=== PATIENT | female | born 1965 | race Caucasian/White ===

== ENCOUNTER → 2021-08-15 11:52 | Outpatient (CLI) | payer OTHER, SELFPAY ==
--- NOTE | 2021-08-15 11:54 | DI.US.S_ITS ---
PROCEDURE: US PELVIC COMPLETE INDICATIONS: Leiomyoma of uterus, unspecified TECHNIQUE: Real-time scanning was performed of the pelvic organs, with image documentation. Additional endovaginal scanning was necessary due to incomplete visualization of the adnexal and endometrial structures by transabdominal scanning. COMPARISON: None. FINDINGS: Uterus: Uterus is retroverted and normal in size at 4.5 x 2.7 x 4.5 cm. The myometrium is homogeneous. The endometrium measures 1 mm combined thickness. There is a 0.7 x 0.5 x 0.7 cm intramural fibroid in the posterior uterine wall. Question a 3.3 x 2.7 x 6.0 cm pedunculated fibroid. Ovaries: The right ovary measures 1.8 x 0.9 x 1.8 cm. The left ovary measures 2.1 x 1.0 x 1.9 cm. The ovaries have a normal sonographic appearance. Less than 12 follicles can be seen in each ovary. No adnexal masses are seen. There is a 4 mm simple cyst in the left ovary. A 8 x 6 x 8 mm complex cyst with a 3 mm centrally located isoechoic nodule is seen in the left ovary, probably a small hemorrhagic cyst.. Other: No pathologic free abdominal or pelvic fluid. IMPRESSION: 1. Question a 3.3 x 2.7 x 6.0 cm pedunculated fibroid. Comparison to prior examinations, if available, would be helpful. Since it is suboptimally visualized, gynecological MRI would be helpful for further characterization. 2. A small intramural fibroid in the posterior uterine wall. 3. An 8 x 6 x 8 mm complex cyst in the left ovary. A follow-up ultrasound is suggested in 6-12 weeks. We strive to produce accurate, complete, and clear reports of imaging services. To assist us in improving patient care, this report was composed using standard report templates and voice recognition software. Therefore, it may contain abnormal punctuation, insertions and/or omissions. Occasional wrong-word or sound-alike substitutions may occur. Though we review the report and make efforts to correct it, we do recommend that the report be read carefully in proper context to recognize any text inaccuracies. Dictated by: Saul Cook M.D. on 08/15/2021 at 17:45 Approved by: Saul Cook M.D. on 08/16/2021 at 8:21
== END ==
PROVIDERS: PCP Family Medicine; Referring Provider Family Medicine; Visit Provider Family Medicine
DX: D25.1 Intramural leiomyoma of uterus (principal); N83.292 Other ovarian cyst, left side
CPT/HCPCS: 76830; 76856

== ENCOUNTER → 2021-09-26 11:56 | Outpatient (CLI) | payer OTHER, SELFPAY ==
--- NOTE | 2021-09-26 11:57 | DI.US.S_ITS ---
PROCEDURE: US PELVIC COMPLETE INDICATIONS: Fibroids TECHNIQUE: Real-time scanning was performed of the pelvic organs, with image documentation. Additional endovaginal scanning was necessary due to incomplete visualization of the adnexal and endometrial structures by transabdominal scanning. COMPARISON: [facility], , US PELVIC COMPLETE, 08/15/2021, 12:07. FINDINGS: Uterus: Uterus is anteverted and appropriate in size. There is a 4.4 x 3.4 x 6.1 cm right anterior fibroid, previously 3.3 x 2.7 x 6.0 cm Ovaries: Right and left ovaries measure 2.5 x 1.1 x 1.0 cm and 1.6 x 1.1 x 2.7 cm respectively. There is a focal cyst in the right ovary with an echogenic focus measuring 0.7 x 0.6 x 0.8 cm, previously 0.8 x 0.6 x 0.8 cm. Other: No pathologic free abdominal or pelvic fluid. IMPRESSION: Stable ultrasound the pelvis includes 6 cm fibroid and subcentimeter left ovarian cyst with echogenic focus. Approved by: Noah Guadarrama M.D. on 09/26/2021 at 16:51
== END ==
PROVIDERS: PCP Family Medicine; Referring Provider Obstetrics & Gynecology; Visit Provider Obstetrics & Gynecology
DX: D21.9 Benign neoplasm of connective and other soft tissue, unspecified (principal); N83.201 Unspecified ovarian cyst, right side
CPT/HCPCS: 76830; 76856

== ENCOUNTER → 2021-10-02 11:42 | Outpatient (CLI) | payer OTHER, SELFPAY ==
[2021-10-02 12:56] LABS: Add Manual Diff / Slide Review NO; Basophils Absolute Auto 0 /uL (0-100); Basophils Percent Auto 0.6 % (0-2); Eosinophils Absolute Auto 200 /uL (0-450); Eosinophils Percent Auto 2.8 % (2-4); Hematocrit 42.4 % (36-46); Hemoglobin 14.5 g/dL (12.0-16.0); Lymphocytes Absolute Auto 2100 /uL (1100-4500); Lymphocytes Percent Auto 37.8 % (25-40); Mean Corpuscular HGB Conc 34.2 % (30-36); Mean Corpuscular Hemoglobin 30.1 PG (26-34); Monocytes Absolute Auto 600 /uL (0-900); Monocytes Percent Auto 11.2 % (3-14); Neutrophils Absolute Auto 2700 /uL (1500-7000); Neutrophils Percent Auto 47.6 % (50-75); Platelet Count 276 X10^3/uL (150-400); Red Blood Cell Count 4.82 X10^6/uL (4.0-5.2); Red Cell Distribution Width 12.5 % (11.6-14.8); White Blood Cell Count 5.6 X10^3/uL (4.5-11.0)
[2021-10-02 13:25] LABS: Alanine Aminotransferase 21 IU/L (<35); Albumin 4.4 g/dL (3.5-5.0); Albumin Globulin Ratio 1.5 (1.0-2.8); Alkaline Phosphatase 73 U/L (38-126); Aspartate Aminotransferase 26 IU/L (14-36); BUN Creatinine Ratio 19.4 (6-22); Bilirubin Total 0.3 mg/dL (0.2-1.3); Blood Urea Nitrogen 14 mg/dL (7-17); Calcium 9.2 mg/dL (8.4-10.2); Carbon Dioxide 26 mmol/L (22-32); Chloride 106 mmol/L (98-107); Estimated Glomerular Filt Rate > 60 mL/min (>60); Glucose 87 mg/dL (70-100); HEMOLYSIS < 15 (0-50); Sodium 140 mmol/L (137-145); Total Protein 7.4 g/dL (6.3-8.2)
[2021-10-02 13:53] LABS: Cancer Antigen 125 9.1 U/mL (0-35)
[2021-10-04 12:02] LABS: Human Epididymis Prot 4 74.9 pmol/L (0.0-105.2)
== END ==
PROVIDERS: PCP Family Medicine; Referring Provider Obstetrics & Gynecology; Visit Provider Obstetrics & Gynecology
DX: D21.9 Benign neoplasm of connective and other soft tissue, unspecified (principal)
CPT/HCPCS: 36415; 80053; 85025; 86304; 86305

== ENCOUNTER → 2022-05-11 15:19 | Outpatient (CLI) | payer OTHER, SELFPAY ==
--- NOTE | 2022-05-11 | DI.MG.S_ITS ---
BILATERAL DIGITAL SCREENING MAMMOGRAM 3D/2D WITH CAD: 05/11/2022 CLINICAL: Routine screening. Family history of breast cancer. Comparison is made to exams dated: 08/23/2020 mammogram, 02/20/2019 mammogram, 01/29/2018 mammogram, and 12/24/2016 mammogram - [facility]. Both breasts are extremely dense, which lowers the sensitivity of mammography (category d />75% glandular tissue). Current study was also evaluated with a Computer Aided Detection (CAD) system. No significant masses, calcifications, or other findings are seen in either breast. There has been no significant interval change. IMPRESSION: NEGATIVE There is no mammographic evidence of malignancy. A 1 year screening mammogram is recommended. This exam was interpreted at Station ID: [id number]. NOTE: For mammograms, a report in lay terms will be sent to the patient. Approximately 15% of breast malignancies will not be visualized mammographically. In the management of a palpable breast mass, a negative mammogram must not discourage biopsy of a clinically suspicious lesion. Electronically Signed By: Jose lopes/stephy:05/14/2022 07:36:26 letter sent: Normal Exam ACR BI-RADS Category 1: Negative [id number]
== END ==
PROVIDERS: PCP Family Medicine; Referring Provider Family Medicine; Visit Provider Family Medicine
DX: Z12.31 Encounter for screening mammogram for malignant neoplasm of breast (principal); Z80.3 Family history of malignant neoplasm of breast
CPT/HCPCS: 77063; 77067

== ENCOUNTER → 2022-07-17 11:41 | Outpatient (ROUT) | payer OTHER, SELFPAY ==
[2022-07-17 12:44] LABS: Influenza A - CEPHEID Flu A NEGATIVE (NEGATIVE); Influenza B - CEPHEID Flu B NEGATIVE (NEGATIVE); Respiratory Syncytial Virus Negative (Negative)
[2022-07-17 12:54] LABS: COVID-19 CEPHEID 4-PLEX PCR Negative (Negative)
== END ==
PROVIDERS: PCP Family Medicine; Visit Provider Registered Nurse
DX: Z11.52 Encounter for screening for COVID-19 (principal)
CPT/HCPCS: 0241U

== ENCOUNTER → 2022-07-17 11:42 | Outpatient (CLI) | payer OTHER, SELFPAY ==
--- NOTE | 2022-07-17 11:47 | DI.RAD.S_ITS ---
PROCEDURE: XR CHEST 2V INDICATIONS: ACUTE COUGH TECHNIQUE: 2 views of the chest were acquired. COMPARISON: None. FINDINGS: Surgical changes and devices: None. Lungs and pleura: Lungs are clear. No pleural effusions or pneumothorax. Mediastinum: Mediastinal contours are normal. Heart size is normal. Bones and chest wall: No suspicious bony abnormalities. Soft tissues appear unremarkable. IMPRESSION: No acute cardiopulmonary disease process. Dictated by: Paola Berman MD, PhD on 07/17/2022 at 13:23 Approved by: Paola Berman MD, PhD on 07/17/2022 at 13:24
== END ==
PROVIDERS: PCP Family Medicine; Referring Provider Registered Nurse; Visit Provider Registered Nurse
DX: R05.1 Acute cough (principal); Z11.52 Encounter for screening for COVID-19
CPT/HCPCS: 0241U; 71046

== ENCOUNTER 2022-09-27 07:40 | Day surgery (SDC) | payer OTHER, SELFPAY ==
[2022-09-19 10:56] VITALS: BMI 26.3
[2022-09-27] VITALS (9 sets, daily range): BP systolic 104–125; BP diastolic 60–73; PULSE 60–77; RESP 9–18; TEMP 35.7–36.3; O2SAT 92–98; BMI 26.3
--- NOTE | 2022-09-27 | PATH_ITS ---
[facility] Accession Number: [id number] No. of containers..01 Tissue . 01 Material submitted: . uterus - UTERUS, BILATERAL FALLOPIAN TUBES, AND BILATERAL OVARIES . 01 Diagnosis: Uterus, Cervix, Left and Right Fallopian Tubes and Ovaries, Hysterectomy and Bilateral Salpingo-oophorectomy: Cervix: Atrophy of ectocervix. Endometrium: Inactive. Myometrium: Two leiomyomata, serosal and mural. Left and right fallopian tubes: Benign paratubal cysts. Left and right ovaries: Small bilateral serous cystadenofibromas and a single pedunculated fibroma (the latter from the left side). [facility] 10/02/2022 1734 Local . 01 Comment: Lace Cutter sections of this case are also reviewed by Dr. Carolina Caldwell, who concurs with the given interpretation. . 01 Electronically signed: . Tricia Eubanks MD, Pathologist NPI- [id number] . 01 Gross description: . The specimen is received in formalin labeled with the patient's name, , and uterus, bilat fallopian tubes, and ovaries, and consists of an intact uterus (88 g, 6.8 cm superior to inferior, 4.8 cm medial to lateral, 3.3 cm anterior to posterior), attached cervix (2.5 x 2.5 cm), left fallopian tube (5.1 x 0.7 cm), left ovary (3 g, 2.5 x 1.3 x 0.7 cm), right fallopian tube (5.1 x 0.7 cm), and right ovary (3 g, 2.3 x 1.5 x 0.9 cm). The serosa is smooth and diffusely congested with a large pedunculated duke, firm nodule located on the anterior surface measuring 5.6 x 3.9 x 3.5 cm. The ectocervix is duke and smooth with a suture extending from the approximate 12-9 o'clock position with no designation per the requisition. The entire paracervical margin is inked blue while the posterior paracervical margin is inked black. The endocervical canal has duke herringbone mucosa and measures 2.5 cm in length. The endometrial cavity measures 1.7 cm from cornu to cornu and 3.6 cm in length with red, velvety endometrium that averages less than 0.1 cm thick. The myometrium is duke and trabecular measuring up to 1.1 cm in greatest dimension with an additional well-circumscribed white, whorled nodule located intramurally, measuring 0.6 cm in diameter. Sectioning the previously mentioned pedunculated nodule reveals a white, whorled, well-circumscribed cut surface with no hemorrhage or necrosis identified. The left fallopian tube has violaceous smooth serosa with multiple cystic structures measuring up to 0.8 cm in greatest dimension, filled with cloudy serous fluid. sectioning reveals an unremarkable stellate lumen. The left ovary has a duke, cerebriform external surface with a pedunculated duke, firm nodule measuring 0.5 x 0.5 x 0.4 cm and is inked blue. Sectioning reveals a physiologic cut surface with a unilocular, thin-walled cystic structure with an area of pale duke excrescence measuring 0.2 cm in greatest dimension. The inked nodule has a white, whorled cut surface. The right fallopian tube has violaceous smooth serosa with multiple cystic structures measuring up to 0.5 cm in greatest dimension, filled with cloudy serous fluid. Sectioning reveals an unremarkable stellate lumen. The right ovary has a duke, cerebriform external surface. Sectioning reveals a thin, smooth-walled cystic structure filled with duke gelatinous material measuring 0.3 cm in greatest dimension. Lace Cutter sections are submitted as follows: A1: Anterior cervix. A2: Posterior cervix. A3: Anterior full-thickness section. A4: Posterior full-thickness section with nodule. A5: Congested serosa. A6: Pedunculated nodule. A7: Left fallopian tube to include one-half of bisected fimbriae and cross sections. A8-A9: Left ovary to include entire cystic structure and pedunculated nodule. A10: Right fallopian tube to include one-half of bisected fimbriae and cross sections. A11: Lace Cutter right ovary. ([id number]) /[facility] 09/29/[address] [place] [address] . 01 Pathologist provided ICD-10: D25.9 . 01 CPT . 251325 Specimen Comment: A courtesy copy of this report has been sent to [phone] Performed at: 01 [facility] [address] [place] [address], [place], [place] [id number] MD Bertin Mars MD Phone: [phone]
[2022-09-27] MEDS: LACTATED RINGERS 1,000 ML 84 ML IV ×2 (08:03→10:02)
--- NOTE | 2022-09-27 09:03 | PM.PREOP ---
Pre-operative Note COVID-19 COVID-19 status: Not tested Criteria for continued procedure: Non-surgical alternatives not available or appropriate per current SOC Interval Note History & Physical reviewed/Exam performed by Physician: Yes Changes to H&P: No
[2022-09-27] MEDS: CEFAZOLIN 2 GM/100 ML PREMIX 100 ML IV (09:33)
--- NOTE | 2022-09-27 09:50 | SUR.OPER ---
Lithotomy on padded OR bed. [place] Pad Positioner under torso. Head on pillow, arms padded and tucked at sides. Legs secured in padded yellow fins stirrups.
[2022-09-27] MEDS: BUPIVACAINE 0.5% W/ EPI (PF) 30 ML VIAL INJ (10:06)
[2022-09-27] MEDS: ROPIVACAINE 0.2% PF 2 MG/ML 20ML AMP 20 ML INJ (10:36)
--- NOTE | 2022-09-27 11:41 | P.OP_ITS ---
Operative Date/Time/Diagnoses Date of procedure: 09/27/22 Time of procedure: 09:30 Pre-op diagnosis: Pelvic pain Uterine fibroids Right ovarian cyst Stress urinary incontinence Post-op diagnosis: same Procedure & Clinicians Procedure: Procedures Operation Date: 09/27/22 09:00 Actual Procedure Side Surgeon p Total Laparoscopic Hysterectomy w. bilateral salpingectomy-oophorectomy Shabbir Almendarez MD s mid urethral sling, cystoscopy Shabbir Almendarez MD Indications: Marion presented nearly a year ago to discuss hysterectomy for complaints of pelvic pain and pressure associated with her enlarged fibroid uterus.? Patient has been well evaluated and counseled previously by Dr. Janett Freeman and desires to proceed with scheduling total laparoscopic hysterectomy with bilateral salpingo oophorectomy.? Her most recent pelvic US, performed in September 2021 shows: PROCEDURE:? US PELVIC COMPLETE ? INDICATIONS:? Fibroids ? TECHNIQUE:? Real-time scanning was performed of the pelvic organs, with image documentation.? Additional endovaginal scanning was necessary due to incomplete visualization of the adnexal and endometrial structures by transabdominal scanning.? ? COMPARISON:? [facility], US PELVIC COMPLETE, 08/15/2021, 12:07. ? FINDINGS:? ?? Uterus:? Uterus is anteverted and appropriate in size.? There is a 4.4 x 3.4 x 6.1 cm right anterior fibroid, previously 3.3 x 2.7 x 6.0 cm ? Ovaries:? Right and left ovaries measure 2.5 x 1.1 x 1.0 cm and 1.6 x 1.1 x 2.7 cm respectively.? There is a focal cyst in the right ovary with an echogenic focus measuring 0.7 x 0.6 x 0.8 cm, previously 0.8 x 0.6 x 0.8 cm. ? Other:? No pathologic free abdominal or pelvic fluid. ?? IMPRESSION:? ? Stable ultrasound the pelvis includes 6 cm fibroid and subcentimeter left ovarian cyst with echogenic focus. In addition to the aforementioned symptoms, the patient also has mixed UI which is primarily stress in nature.? She does however occasionally have some urge incontinence as well.? Patient's paps have always been normal with her most recent in September 2021.? Her LMP was 6-7 years ago and she's experienced no PMB whatsoever. Options again discussed for treatment of the patient's pelvic pain related to fibroids she very much wishes to proceed to hysterectomy with bilateral salpingo oophorectomy.? In addition will perform mid-urethral sling placement due to her history of anatomic KRYSTIAN.? She presents today for her scheduled surgery. Surgeon: Shabbir Almendarez Band Bias Machine Operator: Michelle Quintero Anesthesia Type: General Operative Notes Closure Type: primary Specimen(s): left tube & ovary, right tube & ovary and uterus Applied: catheter Estimated blood loss (mL): 75 Blood products transfused: none Procedure in detail: With the patient in modified dorsal lithotomy position preparations were made by prepping and draping the patient in usual manner for vaginal surgery and insertion of Mccormick catheter. A pre-surgical time-out was then taken in accordance with [facility] [place] policy. A bivalve speculum was then placed in the vagina and the cervix visualized. The anterior lip of the cervix was then grasped with a single-tooth tenaculum. The uterus was sounded to 7 cm, the endocervical canal dilated slightly, and a LK FREEMANare uterine manipulator with a small colpotomy cup was placed. The umbilicus was then infiltrated with 0.5% Marcaine with epinephrine. A 1 cm umbilical incision was made transversely and a Veress needle was used to insufflate the abdominal cavity with carbon dioxide. Once the abdomen was appropriately insufflated, a 5 mm trocar and sleeve were then placed through the umbilical incision. The scope was placed through the trocar and the initial assessment of the intra-abdominal contents carried out. A 2nd and 3rd 5 mm port was then placed 1st in the right mid quadrant from then the left mid quadrant by infiltration of the skin and subcutaneous tissues, a 1 cm transverse incision and insertion of the 5 mm bladeless port. Using a 3 puncture technique, the abdomen and pelvis were inspected laparoscopy. Uterus is mobilized with the VCare manipulator and attention turned to the left adnexa. The distal left fallopian tube was grasped and elevated so as to expose the infundibulopelvic ligament on the left side. The infundibulopelvic ligament was then doubly coagulated with the LigaSure bipolar device and the dissection carried medially across the mesosalpinx and down the lateral aspect of the uterus on the left side. The dissection was carried down to the level of the endocervical canal at which point the bladder flap was initiated from the left side and taken down across the midline. The ascending uterine vessels vessels on the left side were then skeletonized, coagulated, and divided. Attention was then turned to the right adnexa with the distal tube elevated with a grasping forceps. The infundibulopelvic ligament was then doubly coagulated with the LigaSure device and the dissection carried across the mesosalpinx to the right cornua with the dissection then turning downward across the round ligament and down to the level of the endocervical canal on the right. The bladder flap was completed, the ascending uterine vessels skeletonized, coagulated, and divided with the LigaSure. The uterus was seen to margaret after coagulation of both your arteries and the cup was identified through the vaginal muscularis at its insertion with the body of the cervix. Circumferential excision of the vaginal cup was accomplished without difficulty using monopolar current and the uterus mobilized. The uterus was then removed through the vagina and the vaginal cuff closed [id number] with a series of 0 Vicryl [id number] stitches. Hemostasis was excellent, the abdomen was re-insufflated, and the pelvis inspected laparoscopically. The pelvis was inspected for any abnormality or bleeding, and the ureters were each seen to be peristalsing freely. 20 cc of ropivacaine was instilled into the posterior cul-de-sac and vaginal cuff. With complete hemostasis assured, the pneumoperitoneum was vented and the ports removed. All of the 5 mm ports were then closed with 4-0 Monocryl on the skin using inverted interrupted sutures. Skin glue was placed and after the glue was dried, an appropriate dressing was applied. Attention was then turned to performance of the mid urethral sling. A weighted speculum was inserted in the vagina and the anterior vaginal wall inspected. A Mccormick catheter was inserted previously in the bladder and the mid urethra was identified by palpation of the Mccormick bulb. Once the mid urethra had been identified, 2 Allis clamps were placed and the area of incision infiltrated with 0.25% Marcaine with epinephrine. A 2 cm longitudinal incision of the vaginal mucosa overlying the mid urethra was then made and using Metzenbaum scissors the dissection was carried lateral on both sides so as to be able to safely introduce the retropubic tension-free vaginal tape. The TVT needle was placed 1st on the right side followed by placement of a left up through the suprapubic skin. The needle tips were brought out through the skin and remained in place while the Mccormick catheter was removed and cystoscopy performed with findings as noted above. The TVT needles were then brought up through the suprapubic incisions and removed with suture scissors. The mid urethral sling was then appropriately positioned under the mid urethra and the plastic sleeves removed from the TVT once it was in correct position. The redundant portion TVT material was then excised at the skin line of the suprapubic incisions. Correct positioning of the DVT was then confirmed and the vaginal incision closed with 3-0 chromic in a running locking stitch. Pressure was maintained on the retropubic tissues for 5 minutes so as to reduce the risk subsequent bleeding or bruising. The suprapubic incisions were then closed with skin glue and an appropriate dressing was applied. Patient was then awakened from anesthesia and transferred to the PACU for a period of observation and recovery after having tolerated procedure well. Complications: none Post-operative Condition: stable Disposition: PACU Plan for aftercare: Routine postoperative care with possible discharge later today.
--- NOTE | 2022-09-27 12:56 | PC.NURSE ---
Patient is sleepy but wakes up easily, she denies pain. 3 lap sites are cdi with dressings of allevyn. Mccormick patent and putting out yellow urine. No packing in vagina, Resting now.
[2022-09-27] MEDS: KETOROLAC 30 MG/ML VIAL IV ×3 (13:14→23:59)
[2022-09-27] MEDS: LACTATED RINGERS 1,000 ML 100 ML IV ×2 (13:14→20:01)
[2022-09-27] MEDS: ONDANSETRON 4 MG/2 ML INJ IV (18:02)
[2022-09-27] MEDS: ACETAMINOPHEN 325 MG TABLET 650 MG PO ×2 (18:02→23:58)
[2022-09-27] MEDS: DOCUSATE 100 MG CAPSULE 200 MG PO (21:32)
[2022-09-27] MEDS: OXYCODONE IR 5 MG TABLET PO (22:39)
[2022-09-28 00:19] VITALS: BP 103/54; PULSE 73; RESP 17; TEMP 36.4; O2SAT 95
[2022-09-28] MEDS: ACETAMINOPHEN 325 MG TABLET 650 MG PO ×2 (05:35→14:15)
[2022-09-28] MEDS: KETOROLAC 30 MG/ML VIAL IV (05:35)
[2022-09-28 06:31] LABS: Add Manual Diff / Slide Review NO; Basophils Absolute Auto 0 /uL (0-100); Basophils Percent Auto 0.2 % (0-2); Eosinophils Absolute Auto 0 /uL (0-450); Eosinophils Percent Auto 0.1 % (2-4); Hematocrit 38.3 % (36-46); Hemoglobin 13.2 g/dL (12.0-16.0); Lymphocytes Absolute Auto 1900 /uL (1100-4500); Lymphocytes Percent Auto 20.8 % (25-40); Mean Corpuscular HGB Conc 34.6 % (30-36); Mean Corpuscular Hemoglobin 30.5 PG (26-34); Mean Corpuscular Volume 88.1 fL (80-100); Monocytes Absolute Auto 700 /uL (0-900); Monocytes Percent Auto 8.1 % (3-14); Neutrophils Absolute Auto 6300 /uL (1500-7000); Neutrophils Percent Auto 70.8 % (50-75); Platelet Count 207 X10^3/uL (150-400); Red Blood Cell Count 4.34 X10^6/uL (4.0-5.2); Red Cell Distribution Width 14.9 % (11.6-14.8)
[2022-09-28 08:14] VITALS: BP 104/61; PULSE 55; RESP 16; TEMP 36.9; O2SAT 96
[2022-09-28] MEDS: DOCUSATE 100 MG CAPSULE 200 MG PO (08:33)
[2022-09-28] MEDS: FLUoxetine 20 MG CAPSULE PO (08:33)
[2022-09-28] MEDS: ONDANSETRON 4 MG/2 ML INJ IV ×2 (08:34→14:17)
[2022-09-28] MEDS: OXYCODONE IR 5 MG TABLET PO (09:33)
--- NOTE | 2022-09-28 10:26 | PM.DS.1 ---
History of Present Illness History of Present Illness Date Patient Seen: 09/28/22 Time Patient Seen: 10:26 Chief complaint: Pelvic pain, uterine fibroids, KRYSTIAN Narrative: Marion presented nearly a year ago to discuss hysterectomy for complaints of pelvic pain and pressure associated with her enlarged fibroid uterus.? Patient has been well evaluated and counseled previously by Dr. Janett Freeman and desires to proceed with scheduling total laparoscopic hysterectomy with bilateral salpingo oophorectomy.? Her most recent pelvic US, performed in September 2021 shows: PROCEDURE:? US PELVIC COMPLETE ? INDICATIONS:? Fibroids ? TECHNIQUE:? Real-time scanning was performed of the pelvic organs, with image documentation.? Additional endovaginal scanning was necessary due to incomplete visualization of the adnexal and endometrial structures by transabdominal scanning.? ? COMPARISON:? [facility], PELVIC COMPLETE, 08/15/2021, 12:07. ? FINDINGS:? ?? Uterus:? Uterus is anteverted and appropriate in size.? There is a 4.4 x 3.4 x 6.1 cm right anterior fibroid, previously 3.3 x 2.7 x 6.0 cm ? Ovaries:? Right and left ovaries measure 2.5 x 1.1 x 1.0 cm and 1.6 x 1.1 x 2.7 cm respectively.? There is a focal cyst in the right ovary with an echogenic focus measuring 0.7 x 0.6 x 0.8 cm, previously 0.8 x 0.6 x 0.8 cm. ? Other:? No pathologic free abdominal or pelvic fluid. ?? IMPRESSION:? ? Stable ultrasound the pelvis includes 6 cm fibroid and subcentimeter left ovarian cyst with echogenic focus. In addition to the aforementioned symptoms, the patient also has mixed UI which is primarily stress in nature.? She does however occasionally have some urge incontinence as well.? Patient's paps have always been normal with her most recent in September 2021.? Her LMP was 6-7 years ago and she's experienced no PMB whatsoever. Options again discussed for treatment of the patient's pelvic pain related to fibroids she very much wishes to proceed to hysterectomy with bilateral salpingo oophorectomy.? In addition will perform mid-urethral sling placement due to her history of anatomic KRYSTIAN.? She presents today for her scheduled surgery. Discharge Providers Provider Date of admission: 09/27/2022 Discharge Date: 09/28/22 Primary care physician: Trey Correa MD Discharge provider: Shabbir Almendarez MD Summary Hospital Course Discharge Diagnosis: Pelvic pain Uterine fibroids Stress urinary incontinence Postop urinary retention Status post total laparoscopic hysterectomy with bilateral salpingo oophorectomy and mid urethral sling placement Hospital Course: Marion was admitted on the morning of 09/29/2022 and underwent an uneventful total laparoscopic hysterectomy with bilateral salpingo oophorectomy and placement of mid urethral sling with cystoscopy. Details of the procedure well summarized on my operative note of that date. Following surgery the patient has done extremely well with prompt return of bowel function, she is ambulating independently, tolerating regular diet, and her pain is well-controlled with oral pain medications. Unfortunately she is having difficulty fully emptying her bladder as she was able to void about 250 cc but upon catheterization was found to have an 1100 cc residual. After discussion of all options, she will be discharged with instructions and supplies for intermittent self catheterization and initiation of Flomax 0.4 mg p.o. q.d.. Prior to discharge she was counseled regarding precautionary symptoms, limitations of activity, medications, and plans for follow-up which will be in 2 weeks or as needed. Medications at discharge will include resumption of all of her preoperative medications and oxycodone 5 mg p.o. q.6 hours as needed pain dispensed 15 with no refills, and Cipro 500 mg p.o. b.i.d. x5 days for UTI prophylaxis. She will continue Flomax daily for the next 10 days and be in contact with the office if she has any continued difficulty with voiding. Status at Discharge Cognitive/behavioral status at discharge: oriented Functional status at discharge: independent ambulation Overall status at discharge: patient is progressing back to baseline Time Spent with Patient Time spent: Less than 30 minutes Exam Vital Signs (past 8 hours): - 09/28/22 08:14 Temperature 98.5 F Pulse Rate 55 L Respiratory Rate 16 Blood Pressure 104/61 Pulse Oximetry 96 Oxygen Delivery Method Room Air Oxygen Flow Rate 0 Const General: cooperative and comfortable Nutritional Appearance: average body habitus Orientation: alert and oriented x3 HENMT Head: normal to inspection, atraumatic and abrasion Ears: hearing grossly normal bilaterally Face and sinus: face symmetric Eyes General: appearance normal, both eyes and all related structures Conjunctivae: conjunctivae normal Sclera: sclerae normal EOM: EOM intact bilaterally Neck Neck: normal visual inspection Resp Effort & Inspection: normal respiratory effort and able to speak in complete sentences Auscultation: clear to auscultation bilaterally Cardio Rate: regular rate Rhythm: regular rhythm Heart Sounds: S1 normal, S2 normal and no murmurs GI Inspection: normal to inspection and incision (Surgical dressings clean and dry) Palpation: soft, no hepatosplenomegaly and tender (Mild, diffuse postsurgical tenderness) Auscultation: normal bowel sounds External Female Exam: other (No significant bleeding noted) Extrem General: no calf tenderness Psych Appearance: grossly normal Mental Status: mental status grossly normal Speech and Movement: speech and movement normal Mood: congruent mood Affect: normal affect Attitude: cooperative Thought Process: normal Thought Content: normal Judgment: judgment good Objective Labs 09/28/22 05:40 Labs: Laboratory Results - last 24 hr 09/28/22 05:40 WBC 9.0 RBC 4.34 Hgb 13.2 Hct 38.3 MCV 88.1 MCH 30.5 MCHC 34.6 RDW 14.9 H Plt Count 207 Neut % (Auto) 70.8 Lymph % (Auto) 20.8 L Bowman % (Auto) 8.1 Eos % (Auto) 0.1 L Baso % (Auto) 0.2 Neut # (Auto) 6300 Lymph # (Auto) 1900 Bowman # (Auto) 700 Eos # (Auto) 0 Baso # (Auto) 0 PFSH Medical History (Updated 09/18/22 @ 09:56 by Shabbir Almendarez MD) Anxiety (~2004) Carpal tunnel syndrome (~1993) Chicken pox (~1971) Depression Fibroids Gastric reflux (~1999) Hemorrhoid (~2016) History of alcoholism History of urinary incontinence (~2016) Shoulder pain (~1990) Surgical History (Updated 10/12/21 @ 20:40 by Margaret Goss) Anesthesia History of colonoscopy Family History (Updated 10/12/21 @ 20:49 by Margaret Goss) Family/Other Breast cancer Father Prediabetes History of heart disease Hyperlipidemia Hypertension Mental health problem Mother Diabetes mellitus Hyperlipidemia Hypertension Ovarian cyst Grandfather History of heart disease Hypertension Hyperlipidemia Stroke Grandmother Leukemia Hypertension Shingles Grandfather Mental health problem Alzheimer's disease Grandmother History of heart disease Hypertension Mental health problem Breast cyst Social History household members: spouse Smoking Status: Never smoker alcohol intake: never Discharge Plan Discharge Plan Patient Disposition: Home Provider Discharge Comment: Please review the written instructions she received you were discharged from the hospital. Your follow-up appointment with me will be 2 weeks after your surgery and I look forward to seeing you then. In the meanwhile however if you have any issues, concerns, or problems, please contact me either through the office phone at [phone], or via the patient portal. Nursing Discharge Comment: Urinate first, then place in and out catheter as shown. Keep track of the amount of urine coming out of the bladder. The amount should lessen over time. If it doesn't decrease then call Dr. Almendarez on Saturday, or if needed the [facility] service over the weekend. Discharge orders & Medications Discharge Orders: Discharge (Order); Ordered 09/28/22 Ordered By: Shabbir Almendarez Prescriptions: New oxycodone 5 mg Tablet 5 mg PO Q6H PRN (Reason: Pain, Moderate (4-6)) Qty: 15 0RF ciprofloxacin HCl [Cipro] 500 mg tablet 500 mg PO BID 5 Days Qty: 10 0RF tamsulosin [Flomax] 0.4 mg capsule 0.4 mg PO BEDTIME Qty: 10 0RF Continued fluoxetine 20 mg capsule 20 mg PO DAILY Follow up/Referrals: Trey Correa MD [Primary Care Provider] - Shabbir Almendarez MD [Physician] - Diet/Activity/Treatments Diet: Diet as Tolerated Activity: As tolerated Other treatments: Cyun-fke-nhabefg Tylenol and/or ibuprofen may be used for additional pain relief. Use the straight catheters provided to drain your bladder as needed. Skin/Wound/Dressing Care Report to your healthcare provider any signs of infection, such as:: chills, fever, increased pain, unusual drainage and unusual redness Dressing: Dressings should be removed on morning of 09/29/2022 Visit Report/Discharge Packet Instructions: How to Catheterize Yourself -- for Women, DI for Hysterectomy, DI for Laparoscopy, DI for Constipation, How to Prevent Falls, DI for Prescription Opioid Use, Tamsulosin Stand Alone Forms: Patient Portal/API, Stroke Signs & Symptoms Print Language: Mohawk Discharge Data Primary Care Provider: Trey Correa Attending Provider: Shabbir Almendarez VTE Deep Vein Thrombosis/Pulmonary Embolism Present on Admission: No
--- NOTE | 2022-09-28 11:29 | CM.DANOTE ---
DCP: Case received, EMR reviewed and met with patient. Introduced self and role. Completed DCP assessment based upon information currently available. Patient is a 57 year old female who admitted yesterday morning to the care of Dr. Almendarez. Payer: confirmed: [facility]. PCP: Dr. Correa. Patient came to the hospital via private vehicle for a surgical procedure. Patient had total laparoscopic hysterectomy with bilateral salpingectomy-oophorectomy. Patient has history of uterine fibroids, ovarian cyst. Met with patient in her room. She is alert, sitting up in bed. She resides in [place] with spouse, Bronson. She is independent, and is employed at [employer]. P: Patient should be able to discharge home when stable, most likely today. Tatianna Newell RN/Animal Surgeon Discharge Planning/Care Management CM Discharge Assessment Start: 09/28/22 11:27 Freq: Status: Active Protocol: Document 09/28/22 11:28 (Rec: 09/28/22 11:29 [id number]) Discharge Planning Assessment Assigned Derivatives Trader Tatianna Newell RN/Animal Surgeon Advance Directives? Yes Advance Directives on File No History Provided By Patient,Medical Record Prior Living Arrangements House Household Members spouse Independent with ADL's Yes Is patient alert and oriented? Yes Barriers to Discharge No Discharge Plan Home Transportation Arrangement Spouse Referrals Initiated None needed Whiteboard Updated in Patient Room with Yes name and ext. # of Derivatives Trader Review Status In Process Next Review Type Continued Stay Review Pre-Anesthesia Assessment Start: 09/19/22 10:56 Freq: Status: Complete Protocol: Document 09/19/22 10:56 [facility] (Rec: 09/19/22 11:01 [facility] [id number]) Pre-Anesthesia Assessment Patient Information Reviewed Via Chart Review Primary Care Provider Trey Correa Seen Specialist in Last 12 Months Yes Specialist Seen Marketing Analytics Specialist Primary Language East Timorese Director Utilization Management Required No Height 5 ft 2 in Weight 144 lb Body Mass Index (BMI) 26.3 Barriers to Learning None Hx Anesthesia Reactions No Anesthesia Review Requested No Company Marker No Smoking Status Never smoker History of Falling (Recent or History of No ) Patient is completely paralyzed or No completely immobile Mental Status Oriented to own ability Is patient on oxygen? No Hx Sleep Apnea No Currently Taking a Beta Anival No Anti-Coagulant Therapy No Cardiac Testing No Hx Pacemaker/ICD No Pacemaker Rep Required? No Cardiac Clearance Received Not Applicable Bladder Pattern Incontinent Urinary Catheter Present No Hx Urinary Self Catheterization No Diabetes No Patient No Lactating No Marital Status Patient Discharge Plan Description Return Home
[2022-09-28] MEDS: IBUPROFEN 600 MG TABLET PO (14:15)
--- NOTE | 2022-09-28 20:01 | PC.NURSE ---
Discharge: Pt would really like to go home. Dr. Almendarez here several times today. She was unable to void at all this am. Then later was voiding 200mls but still felt full. Dr. Almendarez spoke about richard with pt and spouse and spouse is willing to learn to cath patient. Pt had been bladder scanned for 250mls about 30-45 mins prior to being cath. (Due to instructions for pt's spouse) Pt had 1100mls of urine return. Dr. Almendarez called to notify him of the large amount of urine out. The debate is to place a richard and leave it vs pt being cath. Pt's spouse was able to cath patient without problems with guidance from this senior writer. He feels comfortable about doing the caths at home and then they don't have to worry about a richard and leg bag teaching. made aware. He had given pt a couple of supplies but since she is to do it more routinely now she was given some extras. Pt is going home with in and out caths. Tolerates diet w/out problems. Po pain meds effective. Discussed wound care. She already has her follow up appointment. Given discharge packet and reviewed. Questions answered. Both pt and spouse feel ready to go home. Pt d/c to home via auto w/spouse.
== END 2022-09-28 18:00 | disposition home or self-care (01) ==
LOC: OR 07:42 → AC 09:49
PROVIDERS: PCP Family Medicine; Referring Provider Obstetrics & Gynecology; Visit Provider Obstetrics & Gynecology
PROC: 0UT94ZZ Resection of Uterus, Percutaneous Endoscopic Approach (ICD-10-PCS; CPT 58571; principal; 2022-09-27 09:00)
PROC: 0TSD0ZZ Reposition Urethra, Open Approach (ICD-10-PCS; CPT 58571; 2022-09-27 09:00)
DX: D25.1 Intramural leiomyoma of uterus (principal); N39.3 Stress incontinence (female) (male); D25.2 Subserosal leiomyoma of uterus; N83.8 Other noninflammatory disorders of ovary, fallopian tube and broad ligament; D27.1 Benign neoplasm of left ovary; D27.0 Benign neoplasm of right ovary
CPT/HCPCS: 58571; 57288; 36415; 85025; C1771; J0690; J1100; J1170; J1885; J2405; J2704; J2795; J3010

== ENCOUNTER → 2023-09-06 08:42 | Outpatient (CLI) | payer OTHER, SELFPAY ==
[2022-09-27 12:15] VITALS: BMI 26.3
--- NOTE | 2023-09-06 | DI.MG.S_ITS ---
BILATERAL DIGITAL SCREENING MAMMOGRAM 3D/2D WITH CAD: 09/06/2023 CLINICAL: Routine screening. Family history of breast cancer. Comparison is made to exams dated: 08/23/2020 mammogram, 02/20/2019 mammogram - [facility], and 05/11/2022 mammogram - [facility]. Both breasts are extremely dense, which lowers the sensitivity of mammography (category d />75% glandular tissue). Current study was also evaluated with a Computer Aided Detection (CAD) system. No significant masses, calcifications, or other findings are seen in either breast. There has been no significant interval change. IMPRESSION: NEGATIVE There is no mammographic evidence of malignancy. A 1 year screening mammogram is recommended. Based on the Tyrer Cuzick model (a risk assessment model) the patient's lifetime risk is 18.5% and her 10 year risk is 7.4%. According to the ACR, ACS, and NCCN guidelines, an annual breast MRI exam along with mammogram is recommended if the patient's lifetime risk is 20% or greater. This exam was interpreted at Station ID: [id number]. NOTE: For mammograms, a report in lay terms will be sent to the patient. Approximately 15% of breast malignancies will not be visualized mammographically. In the management of a palpable breast mass, a negative mammogram must not discourage biopsy of a clinically suspicious lesion. Electronically Signed By: Enrike keenan/stephy:09/06/2023 09:20:04 letter sent: Normal Exam ACR BI-RADS Category 1: Negative 3341F
== END ==
PROVIDERS: PCP Family Medicine; Referring Provider Family Medicine; Visit Provider Family Medicine
DX: Z12.31 Encounter for screening mammogram for malignant neoplasm of breast (principal); Z80.3 Family history of malignant neoplasm of breast; R92.343 Mammographic extreme density, bilateral breasts
CPT/HCPCS: 77063; 77067

== ENCOUNTER → 2024-05-06 07:44 | Outpatient (CLI) | payer OTHER, SELFPAY ==
[2022-09-27 12:15] VITALS: BMI 26.3
--- NOTE | 2024-05-06 07:45 | DI.NM.S_ITS ---
PROCEDURE: NM EXERCISE TREADMILL NON NUC COMPARISON: None. INDICATIONS: SOB ON EXERTION FINDINGS: Patient exercised per the standard Delio protocol. Total exercise time was 8 minutes and 13 seconds. Test was terminated secondary to fatigue. Maximal heart rate obtained is 161 bpm which is 101% of max and predicted heart rate. Maximum blood pressure was 162/98[place] [address]. XU -19%. 10.1 METS. No ischemic changes noted. Occasional PVCs noted during the stress phase but no ventricular tachycardia noted. Normal heart rate and blood pressure response to exercise. No chest pains voiced. IMPRESSION: 1. Negative exercise treadmill stress test for ischemia. 2. Above average exercise tolerance. Dictated by: Jerry Mullins M.D. on 05/06/2024 at 17:03 Approved by: Jerry Mullins M.D. on 05/06/2024 at 17:04
== END ==
PROVIDERS: PCP Family Medicine; Referring Provider Family Medicine; Visit Provider Family Medicine
DX: R06.02 Shortness of breath (principal)
CPT/HCPCS: 93017